=== PATIENT | female | born 1960 | race Caucasian/White ===

== ENCOUNTER 2021-05-29 08:01 | Outpatient (CLI) | payer OTHER | END 2021-05-29 08:02 | disposition home or self-care (01) | LOC: CSHWCC 08:01 | PROVIDERS: ATTEND Nurse Practitioner Family | DX: I89.0 Lymphedema, not elsewhere classified (principal); E66.3 Overweight; I10 Essential (primary) hypertension; I87.2 Venous insufficiency (chronic) (peripheral); N17.9 Acute kidney failure, unspecified; R60.0 Localized edema | CPT/HCPCS: 99203; G0463 ==

== ENCOUNTER 2021-06-30 10:04 | Outpatient (CLI) | payer OTHER | END 2021-06-30 10:05 | disposition home or self-care (01) | LOC: CSHWCC 10:04 | PROVIDERS: ATTEND Nurse Practitioner Family | DX: R60.0 Localized edema (principal); I10 Essential (primary) hypertension; I87.2 Venous insufficiency (chronic) (peripheral); E66.3 Overweight; I89.0 Lymphedema, not elsewhere classified; N17.9 Acute kidney failure, unspecified | CPT/HCPCS: 99213; G0463 ==

== ENCOUNTER 2024-09-25 08:14 | Outpatient (CLI) | payer OTHER | END 2024-09-25 08:15 | disposition home or self-care (01) | LOC: CSHSLEEP 08:14 | PROVIDERS: ATTEND Family Medicine | DX: G47.33 Obstructive sleep apnea (adult) (pediatric) (principal); R53.83 Other fatigue; E66.9 Obesity, unspecified; Z68.42 Body mass index [BMI] 45.0-49.9, adult; R09.02 Hypoxemia | CPT/HCPCS: 95800 ==